=== PATIENT | female | born 1970 | race Caucasian/White ===

== ENCOUNTER 2022-11-23 20:50 | Emergency (ER) | payer MEDICAID ==
[2022-11-23] MEDS ORDERED: Ondansetron 4 MG/2 ML SDV IVPUSH PRN (21:09)
[2022-11-23] MEDS ORDERED: Ketorolac 30 MG/ML SDV IM ONE (21:10)
[2022-11-23] MEDS ORDERED: Sodium Chloride 0.9% 10 ML Syringe FLUSH PRN (21:10)
[2022-11-23] MEDS ORDERED: Sodium Chloride 0.9% 1,000 ML IV SCH (21:15)
[2022-11-23 21:56] LABS: ANION GAP 9.5 meq/L (7-15)
[2022-11-23 22:15] LABS: CORONAVIRUS COVID-19 NAA NEGATIVE (NEGATIVE); RESPIRATORY SYNCYTIAL VIR NAA NEGATIVE (NEGATIVE)
== END 2022-11-23 22:35 | disposition home or self-care (01) ==
LOC: LL.ED 20:50
DX: G44.009 Cluster headache syndrome, unspecified, not intractable (principal); Z20.822 Contact with and (suspected) exposure to COVID-19
CPT/HCPCS: 0241U; 36415; 70450; 71046; 80053; 85025; 96361; 96372; 96374; 99284; J1885; J2405; J7030

== ENCOUNTER 2022-12-18 12:34 | Day surgery (SDC) | payer MEDICAID ==
[~2022-12-18 12:34] MED LIST: Midazolam 1 MG/ML 2 ML SDV ONE; Propofol 200 MG/20 ML SDV ONE
[2022-12-18] MEDS ORDERED: Sodium Chloride 0.9% 10 ML Syringe FLUSH PRN (13:00)
[2022-12-18] MEDS: Lactated Ringers 1,000 ML IV SCH (13:24)
[2022-12-18] MEDS ORDERED: Propofol 200 MG/20 ML SDV ONE (14:30)
== END 2022-12-18 15:55 | disposition home or self-care (01) ==
LOC: LL.SDS 12:34
PROVIDERS: ATTEND Surgery
DX: Z12.11 Encounter for screening for malignant neoplasm of colon (principal); K63.5 Polyp of colon; K64.8 Other hemorrhoids; K64.4 Residual hemorrhoidal skin tags; E78.49 Other hyperlipidemia; F41.9 Anxiety disorder, unspecified; F32.A Depression, unspecified; G43.909 Migraine, unspecified, not intractable, without status migrainosus; R73.01 Impaired fasting glucose; Z79.899 Other long term (current) drug therapy; Z87.891 Personal history of nicotine dependence
CPT/HCPCS: J2250; J2704; J7120

== ENCOUNTER 2023-12-24 16:21 | Emergency (ER) | payer MEDICAID | END 2023-12-24 17:40 | disposition home or self-care (01) | LOC: LL.ED 16:21 | DX: Z04.3 Encounter for examination and observation following other accident (principal); J45.909 Unspecified asthma, uncomplicated; E66.9 Obesity, unspecified; Z79.899 Other long term (current) drug therapy | CPT/HCPCS: 72050; 99283 ==